=== PATIENT | female | born 1950 | race Caucasian/White ===

== ENCOUNTER 2022-06-14 18:02 | Inpatient (IN) | payer MEDICARE, OTHER ==
[~2022-06-14] VITALS: Ht 157.5 cm; Wt 66.2 kg
[2022-06-14] MEDS ORDERED: IV NORMAL SALINE 500 ML BAG IV ONE (18:30)
[2022-06-14 18:53] LABS: MEAN CORPUSCULAR HEMOGLOBIN 31.1 uug (24.7-32.8); MEAN CORPUSCULAR VOLUME 93.4 fL (75.5-95.3); PLATELET COUNT (AUTO) 517 K/uL (179-408)
[2022-06-14 19:05] LABS: ETHANOL < 3 MG/DL (0-0)
[2022-06-14 19:06] LABS: ALANINE AMINOTRANSFERASE 31 U/L (14-59); ALKALINE PHOSPHATASE 137 U/L (50-136); ASPARTATE AMINOTRANSFERASE 19 U/L (15-37); BILIRUBIN,DIRECT 0.2 mg/dL (0.0-0.2); BILIRUBIN,TOTAL 0.6 mg/dL (0.2-1.0); CARBON DIOXIDE 23 mmol/L (21-32); CHLORIDE 102 mmol/L (98-107); CREATININE 1.1 mg/dL (0.6-1.3); GLUCOSE 107 mg/dL (74-106); TOTAL PROTEIN, SERUM 6.8 g/dL (6.4-8.2); UREA NITROGEN, BLOOD 10 mg/dL (7-18)
[2022-06-14 19:08] LABS: POTASSIUM 2.8 mmol/L (3.5-5.1)
[2022-06-14 19:12] LABS: ACETAMINOPHEN < 2.0 ug/mL (10-30)
[2022-06-14 19:14] LABS: THYROID STIMULATING HORMONE 2.601 mIU/mL (0.358-3.740)
[2022-06-14] MEDS ORDERED: ROSU20TA2 PO (19:20)
[2022-06-14] MEDS ORDERED: METH-806 PO (19:20)
[2022-06-14] MEDS ORDERED: TOPI25TA49 PO (19:20)
[2022-06-14] MEDS ORDERED: ONDA4TAB5 PO ×2 (19:20)
[2022-06-14] MEDS ORDERED: TRAM50TA2 PO (19:20)
[2022-06-14] MEDS ORDERED: ASPI81TA31 PO (19:20)
[2022-06-14] MEDS ORDERED: HYDR-4075 PO (19:20)
[2022-06-14] MEDS ORDERED: LAMO200T10 PO (19:20)
[2022-06-14] MEDS ORDERED: SERT50TA PO (19:20)
[2022-06-14] MEDS ORDERED: CLON0.5T4 PO (19:20)
[2022-06-14] MEDS ORDERED: MULT-213 PO (19:20)
[2022-06-14] MEDS ORDERED: LORA-259 PO (19:20)
[2022-06-14] MEDS ORDERED: LEVE500T9 PO (19:20)
[2022-06-14] MEDS ORDERED: LIDO30AD10 TP (19:20)
--- NOTE | 2022-06-14 19:34 | NUR ---
Called [facility] ambulance to transport patient to [place] for CT scan. ETA is 60mins.
[2022-06-14] MEDS ORDERED: POTASSIUM CHLORIDE 20 MEQ TAB.PRT.SR PO ONE (20:00)
[2022-06-14] MEDS ORDERED: POTASSIUM CHLORIDE 20 MEQ TAB.PRT.SR ONE (20:28)
--- NOTE | 2022-06-14 20:42 | NUR ---
PATIENT SENT TO [facility] FOR CT SCAN BY [facility]
--- NOTE | 2022-06-14 21:24 | NUR ---
PATIENT BACK FROM CT SCAN WITH NO DISTRESS NOTED.
--- NOTE | 2022-06-14 23:39 | NUR ---
Medically cleared by Dr Navarro.
--- NOTE | 2022-06-14 23:42 | NUR ---
Called Eron Sosa to eval patient.
[2022-06-14] MEDS ORDERED: OLANZAPINE 10 MG VIAL IM ONE (23:50)
[2022-06-15] MEDS ORDERED: OLANZAPINE 10 MG VIAL IM ONE
--- NOTE | 2022-06-15 00:21 | NUR ---
Art Capilla into eval patient.
--- NOTE | 2022-06-15 00:56 | NUR ---
IV removed. Catheter intact and site benign. Pressure and 4x4 gauze applied to site. No bleeding noted.
--- NOTE | 2022-06-15 01:00 | NUR ---
Art Capilla placed patient on 5150 hold for GD.
[2022-06-15] MEDS ORDERED: MAG HYDROX/AL HYDROX/SIMETH 30 ML LIQUID UDC PO PRN (02:30)
[2022-06-15] MEDS ORDERED: MAGNESIUM HYDROXIDE 30 ML LIQUID UDC PO PRN (02:30)
--- NOTE | 2022-06-15 02:54 | NUR ---
Transfered to MHU via wheelchair with no distress noted.
[2022-06-15 03:07] VITALS: BP 140/96
--- NOTE | 2022-06-15 03:40 | NUR ---
GPS: Admitted to unit earlier a 71 yr.old female under the care of / from [facility]. Pt.is on a 72 hold for GD. Pt.was very agitated,yelling and running around the facility and was unable to be re-directed. Also unable to provide her food,half-way and clothing,per hold. Pt.is confused,disoriented and disorganized. Unable to answer questions when asked. Calm,cooperative during admission process. Insight and judgement impaired. Skin assessment/personal belongings completed. Unit rules and expectations explained. Pt's rights handbook and advisement given. Assisted to bed with bed alarm on for safety due to hx of falls. Seizure /fall precautions observed. Will continue to monitor behavior.
--- NOTE | 2022-06-15 06:29 | NUR ---
GPS: Remains asleep at this time. Resp.even and unlabored. Fall precautions observed. Will continue to monitor behavior.
[2022-06-15 07:39] VITALS: BP 137/63
[2022-06-15] MEDS: ACETAMINOPHEN 325 MG TABLET PO PRN (11:23)
[2022-06-15] MEDS ORDERED: ONDANSETRON HCL 4 MG TABLET PO PRN (11:45)
[2022-06-15] MEDS: SERTRALINE HCL 50 MG TABLET PO SCH (11:59)
[2022-06-15] MEDS: DIVALPROEX SPRINKLE 125 MG CAP.SPRINK PO SCH ×2 (11:59→20:18)
[2022-06-15] MEDS ORDERED: HYDR-894 PO (12:30)
[2022-06-15] MEDS ORDERED: hydrALAZINE HCL 25 MG TABLET PO PRN (12:30)
[2022-06-15] MEDS: TOPIRAMATE 25 MG TABLET PO SCH ×2 (14:00→20:23)
[2022-06-15] MEDS: LAMOTRIGINE 200 MG TABLET PO SCH ×2 (14:01→20:20)
[2022-06-15] MEDS: levETIRAcetam 250 MG TABLET PO SCH ×2 (14:02→20:19)
[2022-06-15] MEDS: METHOCARBAMOL 500 MG TABLET PO SCH ×3 (14:03→20:20)
[2022-06-15] MEDS: ASPIRIN 81 MG TAB.CHEW PO SCH (14:24)
--- NOTE | 2022-06-15 15:55 | NUR ---
SAM Initial Discharge Note: Patient's current address per face sheet states [address], [place] [address]. It is unclear if patient will continue care at this address. SW will continue to work with patient and MD to ensure a safe and proper discharge plan.
[2022-06-15 16:00] VITALS: BP 141/91
--- NOTE | 2022-06-15 17:46 | NUR ---
patient is slept most shift ,compliant with all medication , refused lunch and dinner, isolative in her room .refused to speak to psychiatrist and sales negotiator when then attempted to approach her. patient remains withdrawn and depression ,will continue close monitoring.
[2022-06-15 20:18] VITALS: BP 120/66
[2022-06-15] MEDS: OLANZAPINE 2.5 MG TABLET PO SCH (20:19)
[2022-06-15] MEDS: ATORVASTATIN 40 MG TABLET PO SCH (20:19)
[2022-06-15] MEDS: CLONAZEPAM 0.5 MG TABLET PO PRN (20:19)
--- NOTE | 2022-06-16 05:46 | NUR ---
Received patient in room, pulling sheets off her bed and very confused. When asked were [place] was [place] " [place]". Patient was anxious and fidgety . This jingle writer reassured and reoriented the patient multiple times. No aggressive behavior noted. Snack and fluids provided and encouraged. Safety Stratiges are in place. Sleep hours were 8.45. The patient is refusing a shower at this time. Continuing to monitor.
--- NOTE | 2022-06-16 07:30 | NUR ---
patient up to patti-chair in hallway, noted patient attempted to get out from patti-chair without asking for help and rolled over from patti-chair with nu witness fall to floor, assisted patient back to bed,no injury noted denies any pain or discomfort ,vital sign stable .Md notified with hip xray done no Fx noted. patient's personal secretary Dina notified.
[2022-06-16 08:01] VITALS: BP 128/60
[2022-06-16] MEDS: MULTIVIT, IRON, MIN NO. 8, FA TABLET PO SCH (08:34)
[2022-06-16] MEDS: SERTRALINE HCL 50 MG TABLET PO SCH (08:34)
[2022-06-16] MEDS: ASPIRIN 81 MG TAB.CHEW PO SCH (08:34)
[2022-06-16] MEDS: TOPIRAMATE 25 MG TABLET PO SCH ×2 (08:34→17:03)
[2022-06-16] MEDS: DIVALPROEX SPRINKLE 125 MG CAP.SPRINK PO SCH ×2 (08:34→20:43)
[2022-06-16] MEDS: LIDOCAINE 5% PATCH TD SCH (08:34)
[2022-06-16] MEDS: METHOCARBAMOL 500 MG TABLET PO SCH ×4 (08:37→20:43)
[2022-06-16] MEDS: levETIRAcetam 250 MG TABLET PO SCH ×2 (08:37→17:03)
[2022-06-16] MEDS: LAMOTRIGINE 200 MG TABLET PO SCH ×2 (08:38→17:02)
[2022-06-16 16:06] VITALS: BP 127/64
[2022-06-16 20:00] VITALS: BP 135/74
[2022-06-16] MEDS: ATORVASTATIN 40 MG TABLET PO SCH (20:43)
[2022-06-16] MEDS: OLANZAPINE 2.5 MG TABLET PO SCH (20:43)
[2022-06-16] MEDS: CLONAZEPAM 0.5 MG TABLET PO PRN (20:44)
--- NOTE | 2022-06-17 02:58 | NUR ---
Received patient at the start of the shift, roaming around the unit. Going into different peoples rooms, no situational awareness and completely confused. This patient is unable to follow simple directions or to let her needs known. This radio news writer guided the patient to the day room and assisted the patient with a snack. After that, the patient was given a shower. Frequent reorientation and redirection provided by the staff.. Safety Stratiges are in place and ongoing. No aggressive or combative behavior seen , monitoring the patient for behavior escalation.
[2022-06-17] MEDS: TRAMADOL HCL 50 MG TABLET PO PRN (03:35)
[2022-06-17 07:47] VITALS: BP 142/81
[2022-06-17] MEDS: TOPIRAMATE 25 MG TABLET PO SCH ×2 (09:03→16:42)
[2022-06-17] MEDS: MULTIVIT, IRON, MIN NO. 8, FA TABLET PO SCH (09:03)
[2022-06-17] MEDS: METHOCARBAMOL 500 MG TABLET PO SCH ×4 (09:03→21:12)
[2022-06-17] MEDS: ASPIRIN 81 MG TAB.CHEW PO SCH (09:03)
[2022-06-17] MEDS: levETIRAcetam 250 MG TABLET PO SCH ×2 (09:03→16:42)
[2022-06-17] MEDS: LAMOTRIGINE 200 MG TABLET PO SCH ×2 (09:03→16:42)
[2022-06-17] MEDS: SERTRALINE HCL 50 MG TABLET PO SCH (09:03)
[2022-06-17] MEDS: DIVALPROEX SPRINKLE 125 MG CAP.SPRINK PO SCH ×2 (09:03→21:10)
[2022-06-17] MEDS: LIDOCAINE 5% PATCH TD SCH (09:07)
--- NOTE | 2022-06-17 14:48 | NUR ---
GPS: Nursing Notes: 5250 Hearing Request: Staff gave copy of 5250 to patient. Explained 5250 and informed patient that a certification review hearing will held within four days. Patient was inform that patient's right advocate will talk to her to provide assistance in preparing for the hearing or to answer questions or to provide other assistance. The court has been notified of this certification on this day via [facility] portal.
[2022-06-17 16:11] VITALS: BP 132/67
[2022-06-17 19:45] VITALS: BP 126/57
[2022-06-17] MEDS: CLONAZEPAM 0.5 MG TABLET PO PRN (21:10)
[2022-06-17] MEDS: OLANZAPINE 2.5 MG TABLET PO SCH (21:11)
[2022-06-17] MEDS: ATORVASTATIN 40 MG TABLET PO SCH (21:11)
--- NOTE | 2022-06-18 05:33 | NUR ---
Patient slept well, sleep hours are 8.00 . At the start of the shift this patient was wondering around, confused and needing redirection. This patient has no short term memory and requires monitoring all the time to ensure safety. When a food item is placed in front of the patient , this selling underwriter literally has to tell the patient how use a utensil and when to swallow. Reorientation, reassurance and safety stratiges provided continuously. No aggressive or combative behavior noted.
[2022-06-18 07:46] LABS: HEMATOCRIT 39.7 % (31.2-41.9); MEAN CORPUSCULAR VOLUME 95.5 fL (75.5-95.3); PLATELET COUNT (AUTO) 472 K/uL (179-408)
[2022-06-18 08:00] VITALS: BP 131/57
[2022-06-18] MEDS: LAMOTRIGINE 200 MG TABLET PO SCH ×2 (09:14→16:25)
[2022-06-18] MEDS: TOPIRAMATE 25 MG TABLET PO SCH ×2 (09:14→17:47)
[2022-06-18] MEDS: levETIRAcetam 250 MG TABLET PO SCH ×2 (09:14→16:25)
[2022-06-18] MEDS: MULTIVIT, IRON, MIN NO. 8, FA TABLET PO SCH (09:14)
[2022-06-18] MEDS: ASPIRIN 81 MG TAB.CHEW PO SCH (09:14)
[2022-06-18] MEDS: METHOCARBAMOL 500 MG TABLET PO SCH ×4 (09:14→20:53)
[2022-06-18] MEDS: DIVALPROEX SPRINKLE 125 MG CAP.SPRINK PO SCH ×2 (09:14→20:05)
[2022-06-18] MEDS: LIDOCAINE 5% PATCH TD SCH (09:15)
[2022-06-18 09:54] LABS: BILIRUBIN,TOTAL 0.7 mg/dL (0.2-1.0); POTASSIUM 3.2 mmol/L (3.5-5.1); TOTAL PROTEIN, SERUM 6.7 g/dL (6.4-8.2)
[2022-06-18] MEDS: SERTRALINE HCL 50 MG TABLET PO SCH (10:33)
[2022-06-18] MEDS ORDERED: POTASSIUM CHLORIDE 10 MEQ TAB.PRT.SR PO ONE (12:00)
--- NOTE | 2022-06-18 15:18 | NUR ---
patient is slept most shift compliant with all medication , isolative in her room .assisted with all meals. patient remains withdrawn and depression ,will continue close monitoring.
[2022-06-18 16:07] VITALS: BP 106/56
[2022-06-18] MEDS: ENSURE WITH FIBER 237 ML LIQUID (CHOCOLATE) PO SCH (16:25)
[2022-06-18 19:50] VITALS: BP 124/83
[2022-06-18] MEDS: OLANZAPINE 2.5 MG TABLET PO SCH (20:05)
[2022-06-18] MEDS: ATORVASTATIN 40 MG TABLET PO SCH (20:05)
[2022-06-18] MEDS: CLONAZEPAM 0.5 MG TABLET PO PRN (21:12)
--- NOTE | 2022-06-18 21:15 | NUR ---
GPS: Pt.is alert to self only. Confused,disoriented and disorganized. Poor insight to present situation. Wanders from room to room and stands near double doors and is a high risk for AWOL. Constant re-direction provided by staff. Due meds.given earlier. Klonopin 0.5mg given PO for anxiety. Will monitor effectiveness. Reality re-orientation provided. Fall precautions observed.
[2022-06-18] MEDS: ACETAMINOPHEN 325 MG TABLET PO PRN (23:23)
[2022-06-18] MEDS: TEMAZEPAM 7.5 MG CAPSULE PO PRN (23:23)
--- NOTE | 2022-06-18 23:25 | NUR ---
GPS: Pt.remains awake. Unable to fall asleep. Denies pain when asked. Restoril 7.5mg given PO for insomnia. Quiet environment provided to facilitate sleep. Bed alarm on for safety. Re-directed frequently due to increased confusion.
--- NOTE | 2022-06-19 01:00 | NUR ---
GPS: Pt. remains awake at this time and currently restless. Denies pain/discomfort when asked. Denies needing to go to the toilet when asked. Sleeping pill given earlier was ineffective. Confused,disoriented. Up on patti-chair near nurses station for close observation/safety due to frequent episodes of trying to get out of bed (unsteady gait now). Re-directed constantly. Will continue to monitor.
--- NOTE | 2022-06-19 06:39 | NUR ---
GPS: Pt.did not sleep at all the whole night. All prn meds.given were unsuccessful. Pt.was restless most of the night and kept trying to get up from the bed first then patti-chair. Constant re-direction provided. Showered just now and was assisted by staff. Needs attended. Will continue to monitor. Reality re-orientation provided prn.
[2022-06-19 07:48] VITALS: BP 122/86
[2022-06-19] MEDS: ASPIRIN 81 MG TAB.CHEW PO SCH (08:43)
[2022-06-19] MEDS: DIVALPROEX SPRINKLE 125 MG CAP.SPRINK PO SCH ×2 (08:43→20:34)
[2022-06-19] MEDS: ENSURE WITH FIBER 237 ML LIQUID (CHOCOLATE) PO SCH ×2 (08:43→17:00)
[2022-06-19] MEDS: METHOCARBAMOL 500 MG TABLET PO SCH ×4 (08:44→20:35)
[2022-06-19] MEDS: LAMOTRIGINE 200 MG TABLET PO SCH ×2 (08:44→20:36)
[2022-06-19] MEDS: levETIRAcetam 250 MG TABLET PO SCH ×2 (08:44→20:34)
[2022-06-19] MEDS: MULTIVIT, IRON, MIN NO. 8, FA TABLET PO SCH (08:44)
[2022-06-19] MEDS: SERTRALINE HCL 50 MG TABLET PO SCH (08:45)
[2022-06-19] MEDS: LIDOCAINE 5% PATCH TD SCH (08:45)
[2022-06-19] MEDS: TOPIRAMATE 25 MG TABLET PO SCH ×2 (08:45→20:34)
[2022-06-19] MEDS ORDERED: OLANZAPINE 2.5 MG TABLET PO SCH (09:30)
[2022-06-19 16:44] VITALS: BP 142/59
--- NOTE | 2022-06-19 18:44 | NUR ---
Patient is alert/oriented to self. Noted with confusion, nonsensical. Compliant with medication. Seen by MD increased Olanzapine, orders carried out. Patient slept during the shift from noon time. Patient is arousable to touch, no distress noted, no significant changes. Tolerated whole pill, no aspiration noted. She is now on a regular diet. Will endorse to the next shift for continuity of care.
--- NOTE | 2022-06-19 18:50 | NUR ---
Safety measures maintained.
[2022-06-19 20:15] VITALS: BP 138/68
[2022-06-19] MEDS: OLANZAPINE 2.5 MG TABLET PO SCH (20:34)
[2022-06-19] MEDS: ATORVASTATIN 40 MG TABLET PO SCH (20:35)
--- NOTE | 2022-06-20 06:38 | NUR ---
GPS: Pt.slept 9 hrs.last night. Remains confused,disoriented and disorganized. Reality re-orientation provided. Re-directed prn. Needs attended. Safe environment provided. Will continue to monitor.
[2022-06-20 07:30] VITALS: BP 127/59
[2022-06-20] MEDS: LAMOTRIGINE 200 MG TABLET PO SCH ×2 (09:32→17:17)
[2022-06-20] MEDS: ASPIRIN 81 MG TAB.CHEW PO SCH (09:33)
[2022-06-20] MEDS: TOPIRAMATE 25 MG TABLET PO SCH ×2 (09:33→20:29)
[2022-06-20] MEDS: DIVALPROEX SPRINKLE 125 MG CAP.SPRINK PO SCH ×2 (09:33→20:29)
[2022-06-20] MEDS: SERTRALINE HCL 50 MG TABLET PO SCH (09:33)
[2022-06-20] MEDS: OLANZAPINE 2.5 MG TABLET PO SCH ×2 (09:33→20:29)
[2022-06-20] MEDS: MULTIVIT, IRON, MIN NO. 8, FA TABLET PO SCH (09:33)
[2022-06-20] MEDS: ENSURE WITH FIBER 237 ML LIQUID (CHOCOLATE) PO SCH ×2 (09:34→17:21)
[2022-06-20] MEDS: METHOCARBAMOL 500 MG TABLET PO SCH ×4 (09:34→20:29)
[2022-06-20] MEDS: levETIRAcetam 250 MG TABLET PO SCH ×2 (09:34→20:29)
[2022-06-20] MEDS: LIDOCAINE 5% PATCH TD SCH (09:35)
[2022-06-20] MEDS: CLONAZEPAM 0.5 MG TABLET PO PRN ×2 (11:07→17:21)
[2022-06-20 13:04] LABS: *BILIRUBIN,URIN NEGATIVE (NEGATIVE); *BLOOD, URINE NEGATIVE (NEGATIVE); *CLARITY,URINE CLEAR (CLEAR); *COLOR,URINE YELLOW (YELLOW); *KETONES,URINE TRACE (NEGATIVE); *UROBILINOGEN,URINE 0.2 E.U./dl (NORMAL); LEUKOCYTE ESTERASE ,URINE 3+ (NEGATIVE); NITRITE, URINE NEGATIVE (NEGATIVE); UGLUCOSE NEGATIVE (NEGATIVE)
[2022-06-20] MEDS: ACETAMINOPHEN 325 MG TABLET PO PRN ×2 (13:09→21:42)
[2022-06-20 13:25] LABS: RBC,URINE 0-3 /HPF (0-3); WBC,URINE 20-50 /HPF (0-3)
[2022-06-20 13:26] LABS: BACTERIA,URINE MANY /HPF (NONE SEEN); SQUAMOUS EPITHELIAL CELL,UR MODERATE /HPF (NONE SEEN)
[2022-06-20 16:00] VITALS: BP 110/68
--- NOTE | 2022-06-20 18:33 | NUR ---
Patient remains alert, oriented to self, confused, not in any form of distress, on room air. Reality orientation provided. Patient noted with episodes of anxiety and given PRN clonazepam as ordered. She is compliant with medications. Assisted with her feeding with no signs of aspiration. Assisted her to ambulate to the bathroom to void. Urine specimen sent to laboratory. Safety measures maintained.
[2022-06-20 19:58] VITALS: BP 116/62
[2022-06-20] MEDS: ATORVASTATIN 40 MG TABLET PO SCH (20:29)
[2022-06-20] MEDS: NITROFURANTOIN/NITROFURAN MAC 100 MG CAPSULE PO SCH (20:35)
[2022-06-20] MEDS: TEMAZEPAM 7.5 MG CAPSULE PO PRN (21:42)
[2022-06-21 07:30] VITALS: BP 120/60
[2022-06-21] MEDS: ASPIRIN 81 MG TAB.CHEW PO SCH (08:35)
[2022-06-21] MEDS: DIVALPROEX SPRINKLE 125 MG CAP.SPRINK PO SCH ×2 (08:35→20:40)
[2022-06-21] MEDS: NITROFURANTOIN/NITROFURAN MAC 100 MG CAPSULE PO SCH ×2 (08:35→17:15)
[2022-06-21] MEDS: levETIRAcetam 250 MG TABLET PO SCH ×2 (08:35→20:40)
[2022-06-21] MEDS: SERTRALINE HCL 50 MG TABLET PO SCH (08:36)
[2022-06-21] MEDS: MULTIVIT, IRON, MIN NO. 8, FA TABLET PO SCH (08:36)
[2022-06-21] MEDS: TOPIRAMATE 25 MG TABLET PO SCH ×2 (08:36→20:40)
[2022-06-21] MEDS: LAMOTRIGINE 200 MG TABLET PO SCH ×2 (08:36→17:14)
[2022-06-21] MEDS: OLANZAPINE 2.5 MG TABLET PO SCH ×2 (08:36→20:40)
[2022-06-21] MEDS: ENSURE WITH FIBER 237 ML LIQUID (CHOCOLATE) PO SCH ×2 (08:41→17:15)
[2022-06-21] MEDS: LIDOCAINE 5% PATCH TD SCH (08:42)
[2022-06-21] MEDS: CLONAZEPAM 0.5 MG TABLET PO PRN ×2 (08:58→18:39)
--- NOTE | 2022-06-21 11:16 | NUR ---
Gps/Web Development Director- OOB to her patti-chair, stayed up during her breakfast, needed assist with her meals, anxious, crying spells noted. Routine am meds. administered crushed with apple sauce, PRN clonopin 0.5 mg po was administered . Monitored closely for safety, ambulated to the bathroom to void.
[2022-06-21] MEDS: METHOCARBAMOL 500 MG TABLET PO SCH ×4 (11:47→20:39)
--- NOTE | 2022-06-21 12:24 | NUR ---
Hearing completed. Hold is upheld with criteria of Grave disability
--- NOTE | 2022-06-21 15:23 | NUR ---
SAM Family Contact: SAM spoke with pt's son, Nicola who lives out of state ([phone]) who stated that he is agreeable with the psychiatrist's recommendations for pt's continuation of care. Nicola stated pt has a small animal caretaker at home, however he is agreeable to a SNF if needed. SAM stated she will continue to update him with the discharge plan.
[2022-06-21 16:00] VITALS: BP 118/72
[2022-06-21 20:13] VITALS: BP 114/59
[2022-06-21] MEDS: ATORVASTATIN 40 MG TABLET PO SCH (20:40)
--- NOTE | 2022-06-22 05:59 | NUR ---
GPS: Patient remain confused and forgetful. compliant with meds and care. assisted with adl's. slept 6.45 hrs through the night. no agitation noted.
[2022-06-22 07:30] VITALS: BP 101/78
[2022-06-22] MEDS: ENSURE WITH FIBER 237 ML LIQUID (CHOCOLATE) PO SCH ×2 (08:00→16:46)
[2022-06-22] MEDS: LAMOTRIGINE 200 MG TABLET PO SCH ×2 (09:07→16:38)
[2022-06-22] MEDS: TOPIRAMATE 25 MG TABLET PO SCH ×2 (09:07→20:59)
[2022-06-22] MEDS: OLANZAPINE 2.5 MG TABLET PO SCH ×2 (09:07→21:00)
[2022-06-22] MEDS: METHOCARBAMOL 500 MG TABLET PO SCH ×4 (09:07→21:09)
[2022-06-22] MEDS: SERTRALINE HCL 50 MG TABLET PO SCH (09:08)
[2022-06-22] MEDS: NITROFURANTOIN/NITROFURAN MAC 100 MG CAPSULE PO SCH ×2 (09:08→16:38)
[2022-06-22] MEDS: ASPIRIN 81 MG TAB.CHEW PO SCH (09:08)
[2022-06-22] MEDS: DIVALPROEX SPRINKLE 125 MG CAP.SPRINK PO SCH ×2 (09:10→20:59)
[2022-06-22] MEDS: MULTIVIT, IRON, MIN NO. 8, FA TABLET PO SCH (09:11)
[2022-06-22] MEDS: LIDOCAINE 5% PATCH TD SCH (09:12)
[2022-06-22] MEDS: levETIRAcetam 250 MG TABLET PO SCH ×2 (09:12→20:59)
[2022-06-22] MEDS: TRAMADOL HCL 50 MG TABLET PO PRN (11:22)
--- NOTE | 2022-06-22 11:27 | NUR ---
Gps/Cardiology Coordinator- Encouraged to stay in bed to rest her back pain, repositioned on her left side, offered, prn tramadol 50 mg administered po with apple sauce. .Safety reviewed, emphasized, bed alarm on
[2022-06-22] MEDS: CLONAZEPAM 0.5 MG TABLET PO PRN ×2 (13:37→17:22)
[2022-06-22 16:00] VITALS: BP_SYST 130; BP_SYST 132; BP_DIAS 78; BP_DIAS 80
--- NOTE | 2022-06-22 17:30 | NUR ---
Gps/Child Welfare Director-Assisted back to bed after shower. Restless, moaning making sounds, encouraged patient to stay up in her patti-chair till dinner, patient kept climbing up her chair, ambulated back to her room for safety, bed alarm on. Safety reviewed , emphasized
[2022-06-22 20:00] VITALS: BP 116/77
[2022-06-22] MEDS: ATORVASTATIN 40 MG TABLET PO SCH (20:59)
[2022-06-22 22:47] VITALS: BP 127/59
[2022-06-22] MEDS: TEMAZEPAM 7.5 MG CAPSULE PO PRN (22:52)
--- NOTE | 2022-06-23 04:50 | NUR ---
GPS: Pt. is awake at this time and currently restless. Denies pain/discomfort. assisted to go to the toilet when asked. Sleeping pill given earlier was ineffective. Remain Confused and disoriented. Up on patti-chair near nurses station for close observation/safety due to frequent episodes of trying to get out of bed (unsteady gait now). Re-directed constantly. Will continue plan of care.
--- NOTE | 2022-06-23 06:17 | NUR ---
patient slept 3.15 hrs through the night.
[2022-06-23 07:30] VITALS: BP 130/75
[2022-06-23] MEDS: ENSURE WITH FIBER 237 ML LIQUID (CHOCOLATE) PO SCH ×2 (08:00→17:41)
[2022-06-23] MEDS: ASPIRIN 81 MG TAB.CHEW PO SCH (09:01)
[2022-06-23] MEDS: levETIRAcetam 250 MG TABLET PO SCH ×2 (09:02→20:31)
[2022-06-23] MEDS: NITROFURANTOIN/NITROFURAN MAC 100 MG CAPSULE PO SCH ×2 (09:02→17:40)
[2022-06-23] MEDS: MULTIVIT, IRON, MIN NO. 8, FA TABLET PO SCH (09:04)
[2022-06-23] MEDS: LAMOTRIGINE 200 MG TABLET PO SCH ×2 (09:04→17:40)
[2022-06-23] MEDS: OLANZAPINE 2.5 MG TABLET PO SCH ×2 (09:04→20:30)
[2022-06-23] MEDS: SERTRALINE HCL 50 MG TABLET PO SCH (09:04)
[2022-06-23] MEDS: TOPIRAMATE 25 MG TABLET PO SCH ×2 (09:04→20:31)
[2022-06-23] MEDS: METHOCARBAMOL 500 MG TABLET PO SCH ×4 (09:04→20:31)
[2022-06-23] MEDS: DIVALPROEX SPRINKLE 125 MG CAP.SPRINK PO SCH ×2 (09:05→20:31)
[2022-06-23] MEDS: LIDOCAINE 5% PATCH TD SCH (09:06)
[2022-06-23] MEDS: CLONAZEPAM 0.5 MG TABLET PO PRN ×2 (12:03→19:03)
[2022-06-23] MEDS: ACETAMINOPHEN 325 MG TABLET PO PRN (12:03)
--- NOTE | 2022-06-23 12:51 | NUR ---
Gps/Eggs Inspector- Restless, fidgety, kept her on her patti-chair for safety, gait tends to be unsteady, wabbles at time, safety continue to emphasized, had been in and out of her bed, with bed alarm on. Toileted at a reg. intervals. Stayed up during her group activity, closely supervised for safety, Speech confused and incoherent
[2022-06-23] MEDS: TRAMADOL HCL 50 MG TABLET PO PRN (15:08)
[2022-06-23 16:00] VITALS: BP 119/65
[2022-06-23] MEDS: ATORVASTATIN 40 MG TABLET PO SCH (20:31)
[2022-06-23 21:00] VITALS: BP 135/64
[2022-06-24] MEDS: TEMAZEPAM 7.5 MG CAPSULE PO PRN ×2 (01:33→22:58)
--- NOTE | 2022-06-24 05:45 | NUR ---
GPS: Patient remain confused and forgetful. compliant with meds and care. assisted with adl's. no agitation noted. resting in bed comfortably. continue plan of care.
--- NOTE | 2022-06-24 06:28 | NUR ---
slept 6.45 hrs through the night.
[2022-06-24 07:30] VITALS: BP 111/62
[2022-06-24] MEDS: TRAMADOL HCL 50 MG TABLET PO PRN ×2 (08:17→20:09)
[2022-06-24] MEDS: ASPIRIN 81 MG TAB.CHEW PO SCH (08:20)
[2022-06-24] MEDS: LAMOTRIGINE 200 MG TABLET PO SCH ×2 (08:20→17:27)
[2022-06-24] MEDS: DIVALPROEX SPRINKLE 125 MG CAP.SPRINK PO SCH ×2 (08:21→20:10)
[2022-06-24] MEDS: MULTIVIT, IRON, MIN NO. 8, FA TABLET PO SCH (08:21)
[2022-06-24] MEDS: TOPIRAMATE 25 MG TABLET PO SCH ×2 (08:21→20:10)
[2022-06-24] MEDS: NITROFURANTOIN/NITROFURAN MAC 100 MG CAPSULE PO SCH ×2 (08:21→17:28)
[2022-06-24] MEDS: LIDOCAINE 5% PATCH TD SCH (08:22)
[2022-06-24] MEDS: METHOCARBAMOL 500 MG TABLET PO SCH ×4 (08:22→20:35)
[2022-06-24] MEDS: SERTRALINE HCL 50 MG TABLET PO SCH (08:25)
[2022-06-24] MEDS: ENSURE WITH FIBER 237 ML LIQUID (CHOCOLATE) PO SCH ×2 (08:36→17:28)
--- NOTE | 2022-06-24 09:30 | NUR ---
Gps/Station Inspector- Patient with extreme agitation while in the activity room, , yelling at the staff, screaming , not redirectable, offered prn clonipin 0.5 mg po, refused. Dr Cornelio Lehman BUTTERMILK DRIER OPERATOR was called by Charge Nurse Lesa, informed of patient behavior, order received.
[2022-06-24] MEDS ORDERED: LORAZEPAM 2 MG/1 ML VIAL IM ONE (09:45)
[2022-06-24] MEDS: OLANZAPINE 2.5 MG TABLET PO SCH ×2 (10:31→20:10)
[2022-06-24] MEDS: levETIRAcetam 250 MG TABLET PO SCH ×2 (10:32→20:10)
--- NOTE | 2022-06-24 13:51 | NUR ---
Gps/Stock Turner- Patient was able to nap for 2 hours in bed after her IM ativan . Bed alarm went off, patient came out of her room loud , starts yelling again , calling staff name, making nasty gestures. Noted gait wably, unsteady, staff having difficulty redirecting patient, assisted to her patti-chair for safety. Encouraged to eat, assisted with her lunch, patient constantly talking loud no sense., incoherent speech
[2022-06-24 16:22] VITALS: BP 99/57
[2022-06-24] MEDS: CLONAZEPAM 0.5 MG TABLET PO PRN ×2 (17:35→22:00)
--- NOTE | 2022-06-24 18:00 | NUR ---
Gps/Floor Space Allocator- Monitored closely, wanders to other rooms, loud , labile mood, cursing , foul language., will not stay still , tends to get off balance, safety reviewed , emphasized, tried to keep patient up ion her patti-chair will not stay still, uncooperative with the staff. Assisted with her meals
[2022-06-24 19:46] VITALS: BP 102/75
[2022-06-24] MEDS: ATORVASTATIN 40 MG TABLET PO SCH (20:10)
--- NOTE | 2022-06-24 20:45 | NUR ---
RECEIVED PATIENT IN THE HALLWAY SITTING IN A UZAIR CHAIR NEAR THE NURSING STATION FOR SAFETY AND FALL PRECAUTION. PATIENT IS NOTED RESTLESS, SHE GETS EASILY IRRITABLE. SHE IS A POOR HISTORIAN. SHE HAS A DISORGANIZED SPEECH SHE IS TANGENTAL. KLONOPIN 0.5MG PO PRN WAS GIVEN THEN LATER ON SHE WAS GIVEN ULTRAM 50MG FOR PAIN. HER V/S ARE STABLE. SHE WAS GIVEN PO FLUIDS AND SNACKS. SHE IS [id number] FOR HER SAFETY. SAFETY AND FALL PRECAUTION ARE IN PLACE.
[2022-06-25] MEDS: CLONAZEPAM 0.5 MG TABLET PO PRN ×2 (04:14→17:08)
[2022-06-25] MEDS: TRAMADOL HCL 50 MG TABLET PO PRN (04:30)
[2022-06-25 07:54] VITALS: BP 117/66
[2022-06-25] MEDS: ENSURE WITH FIBER 237 ML LIQUID (CHOCOLATE) PO SCH ×2 (08:00→17:00)
[2022-06-25] MEDS ORDERED: OLANZAPINE 5 MG TABLET PO SCH (09:00)
[2022-06-25] MEDS: ASPIRIN 81 MG TAB.CHEW PO SCH (10:30)
[2022-06-25] MEDS: DIVALPROEX SPRINKLE 125 MG CAP.SPRINK PO SCH ×2 (10:33→20:41)
[2022-06-25] MEDS: levETIRAcetam 250 MG TABLET PO SCH ×2 (10:35→20:42)
[2022-06-25] MEDS: METHOCARBAMOL 500 MG TABLET PO SCH ×4 (10:36→20:42)
[2022-06-25] MEDS: NITROFURANTOIN/NITROFURAN MAC 100 MG CAPSULE PO SCH ×2 (10:36→17:08)
[2022-06-25] MEDS: MULTIVIT, IRON, MIN NO. 8, FA TABLET PO SCH (10:36)
[2022-06-25] MEDS: LAMOTRIGINE 200 MG TABLET PO SCH ×2 (10:36→17:08)
[2022-06-25] MEDS: TOPIRAMATE 25 MG TABLET PO SCH ×2 (10:37→20:41)
[2022-06-25] MEDS: SERTRALINE HCL 50 MG TABLET PO SCH (10:37)
[2022-06-25] MEDS ORDERED: OLANZAPINE 2.5 MG TABLET PO ONE (10:45)
[2022-06-25] MEDS: LIDOCAINE 5% PATCH TD SCH (11:11)
--- NOTE | 2022-06-25 15:54 | NUR ---
SAM Family Contact: SAM spoke with pt's son, Nicola ([phone]) to discuss pt's current status and acceptance to [facility] [phone] upon discharge. Nicola stated he will be in town in a couple of weeks, however he is agreeable to pt discharging to a longterm per psychiatrist's recommendation. SAM stated she will call and confirm a discharge date once available. Nicola is agreeable.
[2022-06-25 16:07] VITALS: BP 110/58
[2022-06-25 20:00] VITALS: BP 109/52
[2022-06-25] MEDS: ATORVASTATIN 40 MG TABLET PO SCH (20:42)
[2022-06-25] MEDS: OLANZAPINE 5 MG TABLET PO SCH (20:42)
--- NOTE | 2022-06-25 20:45 | NUR ---
Received patient in her room in bed sleeping but easily arrousable. She is in no distress. V/S stable. Patient is noted A/O x 1 to 2. she is less anxious less agitated. her speech is tangental. She is reassured for his safety, safety and fall precautions are in place. she was given PO fluids and snacks. will continue to monitor.
[2022-06-26] MEDS: TEMAZEPAM 7.5 MG CAPSULE PO PRN ×2 (02:02→23:06)
--- NOTE | 2022-06-26 05:55 | NUR ---
PATIENT SLEPT FOR APPROX 7.15 HRS THROUGH THE NIGHT. SHE WAS NOTED CONFUSED, SHE STATED, "TAKE ME TO SEE THE BABIES, PLEASE". SHE WAS NOTED TEARFUL. SHE REQUIRES REDIRECTION AND REALITY CHECK. NO AGGRESSIVE OR COMBATIVE BX WAS NOTED DURING THE SHIFT. WILL CONTINUE TO MONITOR FOR ANY CHANGES IN CONDITIONS.
[2022-06-26 08:03] VITALS: BP 96/67
[2022-06-26] MEDS: levETIRAcetam 250 MG TABLET PO SCH ×2 (09:27→21:03)
[2022-06-26] MEDS: MULTIVIT, IRON, MIN NO. 8, FA TABLET PO SCH (09:27)
[2022-06-26] MEDS: LAMOTRIGINE 200 MG TABLET PO SCH ×2 (09:27→17:16)
[2022-06-26] MEDS: DIVALPROEX SPRINKLE 125 MG CAP.SPRINK PO SCH ×2 (09:27→21:03)
[2022-06-26] MEDS: ENSURE WITH FIBER 237 ML LIQUID (CHOCOLATE) PO SCH ×2 (09:28→17:17)
[2022-06-26] MEDS: ASPIRIN 81 MG TAB.CHEW PO SCH (09:28)
[2022-06-26] MEDS: METHOCARBAMOL 500 MG TABLET PO SCH ×4 (09:28→21:03)
[2022-06-26] MEDS: OLANZAPINE 5 MG TABLET PO SCH ×2 (09:28→21:03)
[2022-06-26] MEDS: NITROFURANTOIN/NITROFURAN MAC 100 MG CAPSULE PO SCH (09:28)
[2022-06-26] MEDS: SERTRALINE HCL 50 MG TABLET PO SCH (09:28)
[2022-06-26] MEDS: TOPIRAMATE 25 MG TABLET PO SCH ×2 (09:28→21:03)
[2022-06-26] MEDS: LIDOCAINE 5% PATCH TD SCH (09:29)
--- NOTE | 2022-06-26 10:17 | NUR ---
GPS: SEEN PT ON UZAIR CHAIR SAFETY AND FALL PRECAUTION. PT ALERT AND VERBALLY RESPONSIVE BUT NON-COHERENT AT TIMES. STATING "HE IS MAHI", "I WOULD LIKE TO RIDE A BUS, WHERE IS IT?". PT RE-ORIENTED TO REALITY AND PLACE. PT LIKES WANDERING AROUND THE HALLWAY. POSTED NOTES OUTSIDE HER ROOM TO REMIND HER. PT GLAD THAT SHE GOT A LIDOCAINE PATCH PLACED ON LOWER BACK. DENIES PAIN OR DISCOMFORT.
[2022-06-26] MEDS: CLONAZEPAM 0.5 MG TABLET PO PRN (12:46)
[2022-06-26] MEDS: TRAMADOL HCL 50 MG TABLET PO PRN ×2 (13:08→19:07)
[2022-06-26 15:07] VITALS: BP 111/81
--- NOTE | 2022-06-26 18:03 | NUR ---
GPS: PT SEEN WANDERING AROUND THE HALLWAY. STAYS IN FRONT OF THE ENTRANCE DOOR AT TIMES. CALLING OUT OTHER NAMES. TALKING TO SELF. PT REDIRECTABLE MOST OF THE TIME BUT NEEDS CONSTANT REDIRECTION. COMPLIANT WITH MEDS AND CARE. STAYS ON CHAIR DURING MEALS. PT TALKS FROM ONE TOPIC TO ANOTHER, SOUNDS CONFUSED. KLONOPIN AND ULTRAM WAS GIVEN AFTER LUNCH PT COMPLAINT OF BEING ANXIOUS AND HAVE PAIN ON THE BACK. LIDOCAINE PATCH ALSO ADMINISTERED.
[2022-06-26 20:12] VITALS: BP 101/66
[2022-06-26] MEDS: ATORVASTATIN 40 MG TABLET PO SCH (21:03)
--- NOTE | 2022-06-26 21:30 | NUR ---
RECEIVED PATIENT IN HER ROOM SLEEPING BUT EASILY AROUSABLE. SHE IS NOTED A/O X 1. SHE IS NOTED TALKING TO HERSELF, WHISPERING, "YOBANY, COME OVER HERE". SHE IS FIXED ON BABIES. SHE STATES, "TAKE ME TO SEE THE BABIES, WHERE ARE THE BABIES. PATIENT IS SOMEWHAT REDIRECTABLE. SHE IS REASSURED FOR HER SAFETY. SAFETY AND FALL PRECAUTIONARE IN PLACE. HER V/S ARE STABLE. SHE IS IN NO DISTRESS. SHE WAS GIVEN PO FLUIDS AND SNACKS. SHE WAS ALSO GIVEN MOM PO PRN TO HELP HER WITH BMs. WILL CONTINUE TO MONITOR.
[2022-06-27 07:30] VITALS: BP 129/74
[2022-06-27] MEDS: SERTRALINE HCL 50 MG TABLET PO SCH (08:48)
[2022-06-27] MEDS: ENSURE WITH FIBER 237 ML LIQUID (CHOCOLATE) PO SCH ×2 (08:48→17:39)
[2022-06-27] MEDS: LIDOCAINE 5% PATCH TD SCH (08:48)
[2022-06-27] MEDS: ASPIRIN 81 MG TAB.CHEW PO SCH (08:48)
[2022-06-27] MEDS: DIVALPROEX SPRINKLE 125 MG CAP.SPRINK PO SCH ×2 (08:48→20:25)
[2022-06-27] MEDS: LAMOTRIGINE 200 MG TABLET PO SCH ×2 (08:48→17:38)
[2022-06-27] MEDS: OLANZAPINE 5 MG TABLET PO SCH ×2 (08:48→20:25)
[2022-06-27] MEDS: MULTIVIT, IRON, MIN NO. 8, FA TABLET PO SCH (08:48)
[2022-06-27] MEDS: levETIRAcetam 250 MG TABLET PO SCH ×2 (08:48→20:25)
[2022-06-27] MEDS: TOPIRAMATE 25 MG TABLET PO SCH ×2 (08:48→20:25)
[2022-06-27] MEDS: METHOCARBAMOL 500 MG TABLET PO SCH ×4 (08:48→20:25)
[2022-06-27 16:00] VITALS: BP 127/71
--- NOTE | 2022-06-27 16:51 | NUR ---
GPS: PT RECEIVED ON BED THIS MORNING. DOES NOT MAKE ANY MEANINGFUL CONVERSATION. CONFUSED AND SOMETIMES DISORIENTED TO PLACE. LIKES TO WANDER ALONG THE HALLWAY AND GET INTO NURSES STATION. FREQUENT RE-ORIENTATION MADE. COMPLIANT WITH CARE AND MEDS. NO AGITATION OR YELLING NOTED. SAT TO RANCHO CHAIR AT TIMES FOR SAFETY. ASSISTED TO BATHROOM. FIXATED TO "BABY" AND FRIENDLY TO OTHER PT.
[2022-06-27 20:00] VITALS: BP 125/64
[2022-06-27] MEDS: ATORVASTATIN 40 MG TABLET PO SCH (20:25)
[2022-06-28] MEDS: CLONAZEPAM 0.5 MG TABLET PO PRN ×2 (06:01→08:46)
--- NOTE | 2022-06-28 06:05 | NUR ---
PATIENT WOKE UP AND STARTED PACING THE HALLWAY, SHE STATED, "I NEED TO SEE THE CHILDREN. TAKE ME TO SEE THE CHILDREN". PATIENT WAS REASSURED AND REDIRECTED. KLONOPIN 0.5MG PO PRN WAS GIVEN FOR ANXIETY. WILL CONTINUE TO MONITOR.
[2022-06-28 07:56] VITALS: BP_SYST 117; BP_SYST 136; BP_DIAS 48; BP_DIAS 60
[2022-06-28] MEDS: ASPIRIN 81 MG TAB.CHEW PO SCH (08:31)
[2022-06-28] MEDS: TOPIRAMATE 25 MG TABLET PO SCH ×2 (08:31→21:04)
[2022-06-28] MEDS: DIVALPROEX SPRINKLE 125 MG CAP.SPRINK PO SCH ×2 (08:31→21:04)
[2022-06-28] MEDS: SERTRALINE HCL 50 MG TABLET PO SCH (08:31)
[2022-06-28] MEDS: levETIRAcetam 250 MG TABLET PO SCH ×2 (08:31→21:04)
[2022-06-28] MEDS: LAMOTRIGINE 200 MG TABLET PO SCH ×2 (08:31→17:58)
[2022-06-28] MEDS: MULTIVIT, IRON, MIN NO. 8, FA TABLET PO SCH (08:31)
[2022-06-28] MEDS: METHOCARBAMOL 500 MG TABLET PO SCH ×4 (08:43→21:05)
[2022-06-28] MEDS: OLANZAPINE 5 MG TABLET PO SCH ×2 (08:43→21:05)
[2022-06-28] MEDS: ENSURE WITH FIBER 237 ML LIQUID (CHOCOLATE) PO SCH ×2 (08:43→17:59)
[2022-06-28] MEDS: LIDOCAINE 5% PATCH TD SCH (08:44)
[2022-06-28 16:29] VITALS: BP 117/60
[2022-06-28 20:15] VITALS: BP 107/50
[2022-06-28] MEDS: ATORVASTATIN 40 MG TABLET PO SCH (21:04)
--- NOTE | 2022-06-29 04:46 | NUR ---
Patient is calm, cooperative but still very confused and has hallucinations. Assisted up to the bathroom multiple times during the night. Oral fluids encouraged and provided. The patient has been medication compliant but can have labile moods swings. So far, no behavior escalation noted . Safety Stratiges are in place. Possible discharge today.Monitoring closely as the patient tends to wander around the unit into other patients rooms.
[2022-06-29 07:30] VITALS: BP 129/84
[2022-06-29] MEDS: TOPIRAMATE 25 MG TABLET PO SCH (08:31)
[2022-06-29] MEDS: OLANZAPINE 5 MG TABLET PO SCH (08:32)
[2022-06-29] MEDS: SERTRALINE HCL 50 MG TABLET PO SCH (08:32)
[2022-06-29] MEDS: ASPIRIN 81 MG TAB.CHEW PO SCH (08:32)
[2022-06-29] MEDS: levETIRAcetam 250 MG TABLET PO SCH (08:32)
[2022-06-29] MEDS: LAMOTRIGINE 200 MG TABLET PO SCH (08:32)
[2022-06-29] MEDS: MULTIVIT, IRON, MIN NO. 8, FA TABLET PO SCH (08:32)
[2022-06-29] MEDS: ENSURE WITH FIBER 237 ML LIQUID (CHOCOLATE) PO SCH (08:33)
[2022-06-29] MEDS: DIVALPROEX SPRINKLE 125 MG CAP.SPRINK PO SCH (08:33)
[2022-06-29] MEDS: METHOCARBAMOL 500 MG TABLET PO SCH ×2 (08:34→12:16)
[2022-06-29] MEDS: LIDOCAINE 5% PATCH TD SCH (08:34)
--- NOTE | 2022-06-29 09:23 | NUR ---
SAM Discharge Note: Pt will be discharged to [facility] located at [address] [place] [address] ([phone]) via Ambulance transportation at 1PM. SAM spoke with admin coordinator, Dayanna ([phone]) at the facility who states they are ready to accept the patient today. Pt is aware and agreeable with discharge plan. Pts son, Nicola ([phone]) is aware and agreeable with the discharge plan. Pt is alert and oriented x2, is unable to plan for self-care at this time. However, pt is willing to accept care at SNF. Pt denies any suicidal or homicidal ideation. Pt will follow-up at the facility with Psychiatrist, Dr. Elliott ([phone]) and [facility], Dr. [place]. Pt presents with calm mood and congruent affect. PHARMACY: [facility] ([phone]) [address] [facility] [address].
--- NOTE | 2022-06-29 12:56 | NUR ---
Discharged to [facility] via Ambulance transportation at 1PM. Pt is aware and agreeable with discharge plan. Pts son, Nicola is aware and agreeable with the discharge plan. Pt is alert and oriented x2, is unable to plan for self-care at this time. However, pt is willing to accept care at SNF. Pt denies any suicidal or homicidal ideation. all personal belonging returned to patient.report called in to SNF spoke with Juliano JONES.Pt will follow-up at the facility with Psychiatrist, Dr. Elliott ([phone]) and Lead Supply Worker, Dr. [place].
== END 2022-06-29 13:30 | DRG 881 ==
LOC: ER 18:02 → GPS 23:30
PROVIDERS: ADMIT Psychiatry & Neurology Psychiatry; ATTEND Nurse Practitioner Acute Care
DX: F32.9 Major depressive disorder, single episode, unspecified (principal); E87.6 Hypokalemia; E78.5 Hyperlipidemia, unspecified; F20.9 Schizophrenia, unspecified; F41.9 Anxiety disorder, unspecified; G40.909 Epilepsy, unspecified, not intractable, without status epilepticus; Z87.891 Personal history of nicotine dependence; Z88.0 Allergy status to penicillin; Z95.0 Presence of cardiac pacemaker; F39 Unspecified mood [affective] disorder; F29 Unspecified psychosis not due to a substance or known physiological condition; R41.9 Unspecified symptoms and signs involving cognitive functions and awareness; I10 Essential (primary) hypertension; Z79.82 Long term (current) use of aspirin; Z20.822 Contact with and (suspected) exposure to COVID-19; Z59.00 Homelessness unspecified
CPT/HCPCS: 36415; 70450; 73521; 80164; 84443; 85025; 87086; 93005; A4663; G0480; J2060; J2358; J7040

== ENCOUNTER 2023-02-22 15:16 | Inpatient (IN) | payer MEDICARE, OTHER ==
[~2023-02-22] VITALS: Ht 157.5 cm; Wt 68.5 kg
[~2023-02-22 15:16] MED LIST: ASPI81TA31 PO; HYDR-894 PO; LAMO200T10 PO; LEVE500T9 PO; LIDO30AD10 TP; METH-806 PO; MULT-213 PO; ONDA4TAB5 PO; ROSU20TA2 PO; TOPI25TA49 PO; TRAM50TA2 PO
--- NOTE | 2023-02-22 15:29 | NUR ---
ER MD REVIEWED PT 'S CHART AND MEDICAL CLEARANCE WAS DONE.
--- NOTE | 2023-02-22 15:49 | NUR ---
JOHNNY VILLA LVN IN U
[2023-02-22] MEDS ORDERED: SERT100T PO (15:58)
[2023-02-22] MEDS ORDERED: HYDR-4209 PO (15:58)
[2023-02-22] MEDS ORDERED: GABA600T12 PO (15:58)
[2023-02-22] MEDS ORDERED: APIX2.5T PO (15:58)
[2023-02-22] MEDS ORDERED: LINA72CA PO (15:58)
[2023-02-22] MEDS ORDERED: NALT50TA PO (15:58)
[2023-02-22] MEDS ORDERED: LORA0.5T48 PO (15:58)
[2023-02-22] MEDS ORDERED: FOLI1TAB94 PO (15:58)
[2023-02-22] MEDS ORDERED: FERR325T28 PO (15:58)
[2023-02-22] MEDS ORDERED: CHLO25CA22 PO (15:58)
[2023-02-22] MEDS ORDERED: CLON0.5T4 PO (15:58)
[2023-02-22] MEDS ORDERED: ESCI10TA PO (15:58)
[2023-02-22] MEDS ORDERED: MAGNESIUM HYDROXIDE 30 ML LIQUID UDC PO PRN (16:30)
[2023-02-22] MEDS ORDERED: BLOOD SUGAR DIAGNOSTIC 1 EACH STRIP VI ONE (16:30)
--- NOTE | 2023-02-22 17:00 | NUR ---
GPS ADMISSION NOTES: Admitted a female 72 y/o patient, A/O x 3, ambulatory , to MHU, [facility] ER nurse via W/C. Patient resides at home with her son Patient was placed on 5150 for DTS,patient stated she want to overdose on pills because she is feeling depress. Patient will be under the care of Dr. Oconnell and Access Manager . Upon face to face evaluation, she appears of stated age, with no S/S of distress or discomfort. Patient stated she is depress and fell like dying but no plan at this time. contract safety with the sql report writer, stated "I be good". Active listening and re-assurance provided to patients feelings. Her judgement and insight limited. Patient oriented to the unit and verbalized understanding. She was assisted to her room, skin assessment done, skin is to be intact, patient ambulate with steady gait and notice a limp to left leg, per patient stated she had ankle surgery November or December, small scar notice. All belonging inventoried, contraband collected and placed in safe keeping. Close observation in placed, all safety measures implemented at all times, Patient rights book provided, Involuntary patient advisement given to patient. Will continue to monitor.
[2023-02-22 18:22] VITALS: BP 128/91
[2023-02-22 20:03] VITALS: BP 128/60
[2023-02-22] MEDS: APIXABAN 2.5 MG TABLET PO SCH (20:30)
[2023-02-22] MEDS: levETIRAcetam 500 MG TABLET PO SCH (20:50)
[2023-02-22] MEDS: ATORVASTATIN 40 MG TABLET PO SCH (20:50)
[2023-02-22] MEDS: LORAZEPAM 1 MG TABLET PO PRN (20:50)
--- NOTE | 2023-02-22 22:53 | NUR ---
Patients medication Eliquis scheduled for 2100 was not available. This play writer requested for the medication by sending the order to nursing office.The material handling warehouse supervisor was unable to obtain any for tonight. The patient is depressed but denies active SI , and made a verbal contract for safety with this play writer ,for the shift. Safety Stratiges are in place and on going.
[2023-02-23 08:05] VITALS: BP 111/67
[2023-02-23] MEDS: levETIRAcetam 500 MG TABLET PO SCH ×2 (08:32→16:10)
[2023-02-23] MEDS: MULTIVITAMINS,THERAPEUTIC TABLET PO SCH (08:33)
[2023-02-23] MEDS: ASPIRIN 81 MG TAB.CHEW PO SCH (08:33)
[2023-02-23] MEDS: FERROUS SULFATE 325 MG TABEC PO SCH (08:33)
[2023-02-23] MEDS: FOLIC ACID 1 MG TABLET PO SCH (08:33)
[2023-02-23] MEDS: APIXABAN 2.5 MG TABLET PO SCH ×2 (08:43→16:11)
[2023-02-23] MEDS: LORAZEPAM 1 MG TABLET PO PRN ×2 (09:15→21:33)
[2023-02-23] MEDS: ESCITALOPRAM OXALATE 10 MG TABLET PO SCH (11:35)
[2023-02-23] MEDS: LAMOTRIGINE 200 MG TABLET PO SCH ×2 (11:35→16:09)
[2023-02-23] MEDS: GABAPENTIN 300 MG CAPSULE PO SCH ×2 (12:20→16:10)
--- NOTE | 2023-02-23 13:34 | NUR ---
GPS: Nursing Notes: Destructive Behavior To Self: Patient is awake and responding to her name, depressed mood and anxious affect, low energy level, denies SI, stated "I am depressed, but I don't want to hurt myself.." No interactions with peers, compliant with her medications, unable to formulate a viable plan for self care, isolative and withdrawn in her room, unkempt appearance, continue to monitor for safety, continue with treatment plan.
[2023-02-23 16:20] VITALS: BP 94/52
[2023-02-23 20:00] VITALS: BP 101/57
[2023-02-23] MEDS: OLANZAPINE 2.5 MG TABLET PO SCH (20:39)
[2023-02-23] MEDS: ACETAMINOPHEN 325 MG TABLET PO PRN (20:39)
[2023-02-23] MEDS: ATORVASTATIN 40 MG TABLET PO SCH (20:40)
--- NOTE | 2023-02-24 03:49 | NUR ---
Received patient at the start of the shift ,asking for a shower. This proposal lead writer and the patient were able to engage in a meaningful conversation for a significant amount of time . The patient stated " My apartment is full of crack heads and meth users. It makes me so depressed and then I drink ". A plan for coping stratiges and different positive activities that the patient could participate in the community were discussed. The patient made a verbal contract for safety and denied SI at this time. Safety Stratiges are in place and ongoing.
[2023-02-24 07:39] VITALS: BP 94/52
[2023-02-24 08:19] LABS: HEMATOCRIT 42.9 % (31.2-41.9); MEAN CORPUSCULAR HEMOGLOBIN 31.4 uug (24.7-32.8); MEAN CORPUSCULAR VOLUME 98.4 fL (75.5-95.3); PLATELET COUNT (AUTO) 219 K/uL (179-408)
[2023-02-24] MEDS: levETIRAcetam 500 MG TABLET PO SCH ×2 (08:26→16:42)
[2023-02-24] MEDS: ESCITALOPRAM OXALATE 10 MG TABLET PO SCH (08:26)
[2023-02-24] MEDS: FOLIC ACID 1 MG TABLET PO SCH (08:26)
[2023-02-24] MEDS: LAMOTRIGINE 200 MG TABLET PO SCH ×2 (08:26→16:42)
[2023-02-24] MEDS: GABAPENTIN 300 MG CAPSULE PO SCH ×3 (08:26→16:41)
[2023-02-24] MEDS: ASPIRIN 81 MG TAB.CHEW PO SCH (08:26)
[2023-02-24] MEDS: FERROUS SULFATE 325 MG TABEC PO SCH (08:27)
[2023-02-24] MEDS: MULTIVITAMINS,THERAPEUTIC TABLET PO SCH (08:27)
[2023-02-24] MEDS: APIXABAN 2.5 MG TABLET PO SCH ×2 (08:27→16:48)
[2023-02-24 08:32] LABS: CARBON DIOXIDE 27 mmol/L (21-32); CHLORIDE 106 mmol/L (98-107); CREATININE 0.8 mg/dL (0.6-1.3); GLUCOSE 85 mg/dL (74-106); MAGNESIUM 2.1 mg/dL (1.8-2.4); POTASSIUM 4.5 mmol/L (3.5-5.1); UREA NITROGEN, BLOOD 16 mg/dL (7-18)
--- NOTE | 2023-02-24 15:14 | NUR ---
GPS: Nursing Notes: Destructive Behavior To Self: Patient is awake and responding to her name, needs a lot of prompting to participate in therapeutic groups, episodes of isolation and withdrawal in her room, minimal interaction with peers, depressed mood and anxious affect, denies SI, stated "I am feeling better...No, I do not want to hurt myself..", unable to formulate a viable plan for self care, unkempt appearance, compliant with her mediations, continue to monitor for safety, continue with treatment plan.
[2023-02-24 16:08] VITALS: BP 114/63
[2023-02-24 19:38] VITALS: BP 103/63
[2023-02-24] MEDS: LORAZEPAM 1 MG TABLET PO PRN (21:32)
[2023-02-24] MEDS: OLANZAPINE 2.5 MG TABLET PO SCH (21:33)
[2023-02-24] MEDS: ATORVASTATIN 40 MG TABLET PO SCH (21:33)
[2023-02-24] MEDS: MAG HYDROX/AL HYDROX/SIMETH 30 ML LIQUID UDC PO PRN (21:50)
--- NOTE | 2023-02-25 02:11 | NUR ---
Received patient at the start of the shift, anxious and needing reassurance. The patient was given a PRN that was requested and this handbook writer spent some time going over the positive plans that the patient had made a list of from the night before. The patient made a verbal contract for safety with this handbook writer and denied SI , plus made hopeful statements for the future. Safety Stratiges are in place. Continuing to monitor for anxiety and depressive moods.
[2023-02-25] MEDS: LORAZEPAM 1 MG TABLET PO PRN ×2 (06:26→20:39)
[2023-02-25 07:36] VITALS: BP 119/59
[2023-02-25] MEDS: ESCITALOPRAM OXALATE 10 MG TABLET PO SCH (08:27)
[2023-02-25] MEDS: MULTIVITAMINS,THERAPEUTIC TABLET PO SCH (08:27)
[2023-02-25] MEDS: FOLIC ACID 1 MG TABLET PO SCH (08:27)
[2023-02-25] MEDS: FERROUS SULFATE 325 MG TABEC PO SCH (08:27)
[2023-02-25] MEDS: ASPIRIN 81 MG TAB.CHEW PO SCH (08:27)
[2023-02-25] MEDS: GABAPENTIN 300 MG CAPSULE PO SCH ×3 (08:27→16:44)
[2023-02-25] MEDS: levETIRAcetam 500 MG TABLET PO SCH ×2 (08:27→16:44)
[2023-02-25] MEDS: LAMOTRIGINE 200 MG TABLET PO SCH ×2 (08:27→16:44)
[2023-02-25] MEDS: APIXABAN 2.5 MG TABLET PO SCH ×2 (08:34→16:44)
--- NOTE | 2023-02-25 11:51 | NUR ---
SAM Discharge Note: Pt currently resides at [address] [place], [place] [id number] ([phone]). It is unclear at this time if pt will return home with her caregiver, Maral. SAM will contact pt's son, Nicola [phone] and discuss pt's discharge plan. SAM will continue to work with pt, family and MD to ensure a safe and proper discharge plan.
--- NOTE | 2023-02-25 11:52 | NUR ---
SAM Initial Discharge Note: Pt currently resides at [address] [place], [place] [id number] ([phone]). It is unclear at this time if pt will return home with her caregiver, Maral. SAM will contact pt's son, Nicola [phone] and discuss pt's discharge plan. SAM will continue to work with pt, family and MD to ensure a safe and proper discharge plan.
--- NOTE | 2023-02-25 13:54 | NUR ---
GPS: Nursing Notes: Destructive Behavior To Self: Patient is awake and responding to her name, A/Ox3, compliant with her medications, needs prompting to participate in therapeutic groups, cooperative with nursing care, depressed mood and anxious affect, interactive with peers, denies SI, stated "I am feeling better... No, I do not want to hurt myself...", unable to formulate a viable plan for self care, low energy level, continue to monitor for safety, continue with treatment plan.
--- NOTE | 2023-02-25 15:20 | NUR ---
SAM Discharge Update: SAM contacted pt's son, Nicola [phone] and left a voicemail for a call back to discuss pt's discharge plan.
[2023-02-25 16:11] VITALS: BP 93/54
[2023-02-25] MEDS: ACETAMINOPHEN 325 MG TABLET PO PRN (18:36)
[2023-02-25 19:36] VITALS: BP 101/78
[2023-02-25] MEDS: ATORVASTATIN 40 MG TABLET PO SCH (20:19)
[2023-02-25] MEDS: OLANZAPINE 2.5 MG TABLET PO SCH (20:19)
--- NOTE | 2023-02-25 20:46 | NUR ---
GPS: Pt.is anxious at this time but denies wanting to hurt self. Re-assured prn. Med.compliant. Safety emphasized. Bedtime snacks given and patricia.well. Needs attended. Will continue to monitor.
[2023-02-26 07:44] VITALS: BP 105/51
[2023-02-26] MEDS: ASPIRIN 81 MG TAB.CHEW PO SCH (08:09)
[2023-02-26] MEDS: ESCITALOPRAM OXALATE 10 MG TABLET PO SCH (08:09)
[2023-02-26] MEDS: GABAPENTIN 300 MG CAPSULE PO SCH ×3 (08:09→16:52)
[2023-02-26] MEDS: MULTIVITAMINS,THERAPEUTIC TABLET PO SCH (08:09)
[2023-02-26] MEDS: LAMOTRIGINE 200 MG TABLET PO SCH ×2 (08:09→16:52)
[2023-02-26] MEDS: levETIRAcetam 500 MG TABLET PO SCH ×2 (08:09→16:52)
[2023-02-26] MEDS: FERROUS SULFATE 325 MG TABEC PO SCH (08:09)
[2023-02-26] MEDS: FOLIC ACID 1 MG TABLET PO SCH (08:09)
[2023-02-26] MEDS: APIXABAN 2.5 MG TABLET PO SCH ×2 (08:10→16:56)
[2023-02-26] MEDS ORDERED: LORAZEPAM 1 MG TABLET PO PRN (08:15)
[2023-02-26 16:09] VITALS: BP 117/68
--- NOTE | 2023-02-26 17:12 | NUR ---
GPS: Nursing Notes: Destructive Behavior To Self: Patient is awake and responding to her name, depressed mood and anxious affect, gets easily anxious when redirected, impaired judgment, isolative and withdrawn in her room, needs prompting to participate in therapeutic groups, low energy level, denies SI, stated "I am feeling better.. I am not going to hurt myself..I am better..", unable to formulate a viable plan for self care, unkempt appaerance, continue to monitor for safety, continue with treatment plan.
[2023-02-26] MEDS: ATORVASTATIN 40 MG TABLET PO SCH (20:44)
[2023-02-26] MEDS: OLANZAPINE 2.5 MG TABLET PO SCH (20:44)
[2023-02-26 21:42] VITALS: BP 101/68
--- NOTE | 2023-02-26 22:20 | NUR ---
Pt requested medication for having trouble sleeping, and medication for having a headache. Pt stated, "my head and eyes feel like they have a lot of pressure." "It's keeping me from falling asleep." Gave Ambien 5mg po prn hs for insomnia, and Tylenol 650mg po prn for headache. Safety measures in place. Will continue to monitor.
[2023-02-26] MEDS: ZOLPIDEM 5 MG TABLET PO PRN (22:29)
[2023-02-26] MEDS: ACETAMINOPHEN 325 MG TABLET PO PRN (22:30)
[2023-02-27 07:30] VITALS: BP 111/59
[2023-02-27] MEDS: FOLIC ACID 1 MG TABLET PO SCH (08:15)
[2023-02-27] MEDS: FERROUS SULFATE 325 MG TABEC PO SCH (08:15)
[2023-02-27] MEDS: LAMOTRIGINE 200 MG TABLET PO SCH ×2 (08:15→17:16)
[2023-02-27] MEDS: GABAPENTIN 300 MG CAPSULE PO SCH ×3 (08:16→17:15)
[2023-02-27] MEDS: levETIRAcetam 500 MG TABLET PO SCH ×2 (08:16→17:16)
[2023-02-27] MEDS: ESCITALOPRAM OXALATE 10 MG TABLET PO SCH (08:16)
[2023-02-27] MEDS: ASPIRIN 81 MG TAB.CHEW PO SCH (08:16)
[2023-02-27] MEDS: MULTIVITAMINS,THERAPEUTIC TABLET PO SCH (08:18)
[2023-02-27] MEDS: APIXABAN 2.5 MG TABLET PO SCH ×2 (08:20→17:18)
--- NOTE | 2023-02-27 11:23 | NUR ---
SAM Discharge Update: Pt currently resides at [address] [place], [place] [id number] ([phone]). It is unclear at this time if pt will return home with her caregiver, Maral. SAM has still not been able to speak to the pt's son, Nicola [phone] [facility].
[2023-02-27] MEDS: LORAZEPAM 0.5 MG TABLET PO PRN ×2 (12:17→21:10)
[2023-02-27 15:14] VITALS: BP 98/56
--- NOTE | 2023-02-27 17:49 | NUR ---
Received pt in room awake and responding to her name, Pt seems less but with anxious affect. Pt paces down the hallway, hyperverbal and needy. Pt needs constant attention from staff. Pt denies SI and made a verbal contract with this marine underwriter. Pt attends group activities and interacts more with staff and other patients. Pt is compliant with her medications, unable to formulate a viable plan for self care. Pt stated " I feel much better and less depressed" "the only problem I have right now is that I and having nightmares and I think is because of the Keppra I am taking " Reassurance and emotional support provided.Safety measures in place. Continue to monitor for safety, continue with treatment plan.
[2023-02-27 19:59] VITALS: BP 132/81
[2023-02-27] MEDS: ATORVASTATIN 40 MG TABLET PO SCH (21:10)
[2023-02-27] MEDS: OLANZAPINE 2.5 MG TABLET PO SCH (21:10)
[2023-02-27] MEDS: MAG HYDROX/AL HYDROX/SIMETH 30 ML LIQUID UDC PO PRN (21:10)
[2023-02-27] MEDS: ZOLPIDEM 5 MG TABLET PO PRN (23:06)
[2023-02-28 07:57] VITALS: BP 111/70
[2023-02-28] MEDS: ASPIRIN 81 MG TAB.CHEW PO SCH (08:17)
[2023-02-28] MEDS: MULTIVITAMINS,THERAPEUTIC TABLET PO SCH (08:17)
[2023-02-28] MEDS: FERROUS SULFATE 325 MG TABEC PO SCH (08:17)
[2023-02-28] MEDS: levETIRAcetam 500 MG TABLET PO SCH ×2 (08:18→17:25)
[2023-02-28] MEDS: ESCITALOPRAM OXALATE 10 MG TABLET PO SCH (08:18)
[2023-02-28] MEDS: GABAPENTIN 300 MG CAPSULE PO SCH ×3 (08:18→17:26)
[2023-02-28] MEDS: LAMOTRIGINE 200 MG TABLET PO SCH ×2 (08:18→17:25)
[2023-02-28] MEDS: FOLIC ACID 1 MG TABLET PO SCH (08:18)
[2023-02-28] MEDS: APIXABAN 2.5 MG TABLET PO SCH ×2 (08:20→17:40)
--- NOTE | 2023-02-28 09:42 | NUR ---
SAM Discharge Update: SAM spoke with pt's son, Nicola [phone] who stated that pt will return home with her caregiver, Maral located at [address] [place], [place] [id number]. Nicola stated if he is not able to provide transportation, he will help arrange transportation.
[2023-02-28] MEDS: HYDROXYZINE PAMOATE 25 MG CAPSULE PO PRN ×2 (11:46→19:59)
--- NOTE | 2023-02-28 13:15 | NUR ---
Patient had court hearing today, and school childcare attendant Madeline Lizama gave 14 Day hold probable cause for GD.
[2023-02-28 15:30] VITALS: BP 111/72
--- NOTE | 2023-02-28 19:21 | NUR ---
Pt is depressed, anxious, isolative and confused at times.Pt does not participates in group activities and stays in her room for the majority of the shift. Pt is compliant with medications and nursing care. Pt does not have a valuable plan for self care. Emotional support and reassurance provided. Safety measures in place. continue to monitor for safety continue with treatment plan.
[2023-02-28 19:52] VITALS: BP 100/57
[2023-02-28] MEDS: OLANZAPINE 2.5 MG TABLET PO SCH (19:58)
[2023-02-28] MEDS: ATORVASTATIN 40 MG TABLET PO SCH (19:58)
[2023-02-28] MEDS: ACETAMINOPHEN 325 MG TABLET PO PRN (19:59)
[2023-02-28 23:02] LABS: *BILIRUBIN,URIN NEGATIVE (NEGATIVE); *BLOOD, URINE NEGATIVE (NEGATIVE); *CLARITY,URINE CLEAR (CLEAR); *COLOR,URINE YELLOW (YELLOW); *KETONES,URINE NEGATIVE (NEGATIVE); *UROBILINOGEN,URINE 0.2 E.U./dl (NORMAL); LEUKOCYTE ESTERASE ,URINE 1+ (NEGATIVE); NITRITE, URINE NEGATIVE (NEGATIVE); PH,URINE 7.5 (5.0-8.0); UGLUCOSE NEGATIVE (NEGATIVE)
[2023-03-01] MEDS: ZOLPIDEM 5 MG TABLET PO PRN (00:51)
[2023-03-01 00:59] LABS: BACTERIA,URINE FEW /HPF (NONE SEEN); SQUAMOUS EPITHELIAL CELL,UR FEW /HPF (NONE SEEN)
--- NOTE | 2023-03-01 02:36 | NUR ---
Patient c/o " Can't pee much". A specimen was sent to the lab to r/o a UTI. This patient has been needy this shift and was moved to another room because of her room mate has been bullying her and telling her not to comply with the medications or the staff. Safety Stratiges are in place. A verbal contract for safety was made between the patient and this underwriter. The patient continues to deny any current or active SI.
[2023-03-01 07:11] VITALS: BP 98/53
[2023-03-01] MEDS: ASPIRIN 81 MG TAB.CHEW PO SCH (09:17)
[2023-03-01] MEDS: FOLIC ACID 1 MG TABLET PO SCH (09:17)
[2023-03-01] MEDS: FERROUS SULFATE 325 MG TABEC PO SCH (09:17)
[2023-03-01] MEDS: ESCITALOPRAM OXALATE 10 MG TABLET PO SCH (09:18)
[2023-03-01] MEDS: LAMOTRIGINE 200 MG TABLET PO SCH ×2 (09:18→16:43)
[2023-03-01] MEDS: GABAPENTIN 300 MG CAPSULE PO SCH ×2 (09:19→12:50)
[2023-03-01] MEDS: MULTIVITAMINS,THERAPEUTIC TABLET PO SCH (09:19)
[2023-03-01] MEDS: levETIRAcetam 500 MG TABLET PO SCH ×2 (09:20→16:43)
[2023-03-01] MEDS: APIXABAN 2.5 MG TABLET PO SCH ×2 (10:17→16:48)
--- NOTE | 2023-03-01 11:34 | NUR ---
SW Discharge Update: [place] resides at [address] [place] [address] [address] [place] [id number] ([phone]) with her caregiver Maral and son, Nicola. Nicola stated that if he is unable to provide transportation himself, he will help assist with arranging transportation for the pt to return home upon discharge.
[2023-03-01] MEDS: HYDROXYZINE PAMOATE 25 MG CAPSULE PO PRN ×2 (12:57→21:12)
--- NOTE | 2023-03-01 14:12 | NUR ---
SAM Substance Use Assessment: SAM completed a substance use assessment with the pt. SW will provide resources for the pt upon discharge.
--- NOTE | 2023-03-01 14:16 | NUR ---
Nursing- Adequate fluid intake, denies any discomfort in urination.. Encouraged attending her group activity, noted had been in and out of the room, constantly asking for the phone to be used. vistaril 25 mg 1 cap po given for anxiety, claimed it does not work but will take it anyways
--- NOTE | 2023-03-01 14:30 | NUR ---
Nursing -N Russell INVESTIGATIONS CONSULTANT was informed results of urine , no order received .Adequate fluid intake , denies any bladder discomfort.
[2023-03-01] MEDS ORDERED: LORAZEPAM 1 MG TABLET PO ONE (15:05)
--- NOTE | 2023-03-01 15:15 | NUR ---
Nursing- Patient having panic attack, came rushiing to Nurses station claimed not feeling too well, she felt the room was moving around, patient reassured Dr Oconnell was called and informed, orders received. B/P 169/90 HR 78 02 sat. 97%. Ativan 1 mg 1 tab. po was given, patient taken to the Nurses station giving her company and reassurance. B/P rechecked 120/91 HR 82 02 sat 98% .Tylenol 650 mg po michelle for c/o H/A verbalized adequate relief . Safety reviewed , emphasized
[2023-03-01 15:17] VITALS: BP 96/51
[2023-03-01] MEDS: ACETAMINOPHEN 325 MG TABLET PO PRN (15:33)
--- NOTE | 2023-03-01 16:13 | NUR ---
Nursing- Hannah Pharmacist was called to double check on patient's allergy list , noted allergic to Gabapentin , and patient on it at this time, will notify Medical Doctor to clarify . Will continue to monitor patient .
[2023-03-01 20:21] VITALS: BP 126/73
[2023-03-01] MEDS: OLANZAPINE 2.5 MG TABLET PO SCH (20:36)
[2023-03-01] MEDS: MELATONIN 3 MG TABLET PO SCH (20:36)
[2023-03-01] MEDS: ATORVASTATIN 40 MG TABLET PO SCH (20:36)
--- NOTE | 2023-03-01 20:40 | NUR ---
Received patient the tv room, calm and cooperative with care, patient socialize with other patient, drink water, no complain of pain, cont to monitor.
[2023-03-02] MEDS: ZOLPIDEM 5 MG TABLET PO PRN ×2 (00:23→23:29)
--- NOTE | 2023-03-02 05:50 | NUR ---
Patient asleep but arousable, with episode of anxiety, asked for antianxiety meds, with effective results, continent of bowel and bladder, cont to monitor.
[2023-03-02 07:54] VITALS: BP 132/76
[2023-03-02] MEDS: LAMOTRIGINE 200 MG TABLET PO SCH ×2 (08:25→17:14)
[2023-03-02] MEDS: FERROUS SULFATE 325 MG TABEC PO SCH (08:25)
[2023-03-02] MEDS: MULTIVITAMINS,THERAPEUTIC TABLET PO SCH (08:25)
[2023-03-02] MEDS: FOLIC ACID 1 MG TABLET PO SCH (08:25)
[2023-03-02] MEDS: ASPIRIN 81 MG TAB.CHEW PO SCH (08:25)
[2023-03-02] MEDS: ESCITALOPRAM OXALATE 10 MG TABLET PO SCH (08:25)
[2023-03-02] MEDS: APIXABAN 2.5 MG TABLET PO SCH ×2 (08:29→17:28)
[2023-03-02] MEDS: levETIRAcetam 500 MG TABLET PO SCH ×2 (08:30→17:14)
[2023-03-02] MEDS: ACETAMINOPHEN 325 MG TABLET PO PRN ×2 (13:43→22:00)
[2023-03-02] MEDS: LORAZEPAM 0.5 MG TABLET PO PRN ×2 (13:45→22:00)
--- NOTE | 2023-03-02 15:06 | NUR ---
Nursing - Stayed in the activity room most of the time , noted intercating with her peers.Medicated with tylenol 650 mg po. for lower back pain, verbalized adequate relief. Patient was also medicated with ativan 0,5 mg po for her anxiety, verbalized feeling calmer, < anxiety.
[2023-03-02 16:08] VITALS: BP 113/63
--- NOTE | 2023-03-02 19:00 | NUR ---
Received patient up ambulating on hallways, socialize with other resident, patient calm and cooperative with meds, cont to monitor.
[2023-03-02 20:23] VITALS: BP 133/78
[2023-03-02] MEDS: OLANZAPINE 2.5 MG TABLET PO SCH (20:27)
[2023-03-02] MEDS: ATORVASTATIN 40 MG TABLET PO SCH (20:27)
[2023-03-02] MEDS: MELATONIN 3 MG TABLET PO SCH (20:27)
--- NOTE | 2023-03-02 22:09 | NUR ---
Patient requested Ativan meds and tylenol for pain, given meds as ordered. cont to monitor.
[2023-03-03] MEDS: ACETAMINOPHEN 325 MG TABLET PO PRN ×2 (06:19→15:42)
[2023-03-03 08:03] VITALS: BP 100/51
[2023-03-03] MEDS: FOLIC ACID 1 MG TABLET PO SCH (08:35)
[2023-03-03] MEDS: LAMOTRIGINE 200 MG TABLET PO SCH ×2 (08:35→17:24)
[2023-03-03] MEDS: levETIRAcetam 500 MG TABLET PO SCH ×2 (08:35→17:23)
[2023-03-03] MEDS: ESCITALOPRAM OXALATE 10 MG TABLET PO SCH (08:35)
[2023-03-03] MEDS: ASPIRIN 81 MG TAB.CHEW PO SCH (08:35)
[2023-03-03] MEDS: FERROUS SULFATE 325 MG TABEC PO SCH (08:35)
[2023-03-03] MEDS: MULTIVITAMINS,THERAPEUTIC TABLET PO SCH (08:36)
[2023-03-03] MEDS: APIXABAN 2.5 MG TABLET PO SCH ×2 (08:41→17:24)
[2023-03-03] MEDS: LORAZEPAM 0.5 MG TABLET PO PRN ×2 (08:57→18:20)
--- NOTE | 2023-03-03 14:54 | NUR ---
patient has less anxious today claimed slept well last night, compliant with all routine medications . encouraged continued verbalizations of her feelings .patient is ambulates in the unit denies any pain or discomfort ,denies any SI/HI will continue close monitoring.
[2023-03-03 17:17] VITALS: BP 130/71
[2023-03-03 19:56] VITALS: BP 106/71
--- NOTE | 2023-03-03 20:00 | NUR ---
Received patient up ambulate to the hallways, continent of bowel and bladder, patient cooperative with medications and care, talk to other patient at TV room, patient request Ativan from AM nurse due to period of anxiety. cont to monitor.
[2023-03-03] MEDS: MELATONIN 3 MG TABLET PO SCH (20:19)
[2023-03-03] MEDS: ATORVASTATIN 40 MG TABLET PO SCH (20:19)
[2023-03-03] MEDS: OLANZAPINE 2.5 MG TABLET PO SCH (20:19)
--- NOTE | 2023-03-04 | NUR ---
Patient request for sleeping meds, unable to sleep, ambulate to hallways, stated she has a little of anxiety, wants to walk in the hallways to help her anxiety, cont to monitor.
[2023-03-04] MEDS: ZOLPIDEM 5 MG TABLET PO PRN (00:31)
[2023-03-04] MEDS: LORAZEPAM 0.5 MG TABLET PO PRN (02:23)
--- NOTE | 2023-03-04 02:23 | NUR ---
Patient awake, ambulate to hallways, request for Ativan po for her anxiety, encourage to stayed in bed to help promote sleep, provide quiet environment, dim lights, cont to monitor.
--- NOTE | 2023-03-04 06:08 | NUR ---
Patient sleep intermittently, ambulates in hallways, worries about her roommates, redirect patient behavior. Reorient patient that our staff is responsible for the patient and no need to worries, encourage patient to go back to sleep, patient able to follow. cont to monitor.
[2023-03-04 07:43] VITALS: BP 125/77
[2023-03-04] MEDS: ASPIRIN 81 MG TAB.CHEW PO SCH (08:12)
[2023-03-04] MEDS: FOLIC ACID 1 MG TABLET PO SCH (08:12)
[2023-03-04] MEDS: LAMOTRIGINE 200 MG TABLET PO SCH ×2 (08:12→16:56)
[2023-03-04] MEDS: ESCITALOPRAM OXALATE 10 MG TABLET PO SCH (08:12)
[2023-03-04] MEDS: FERROUS SULFATE 325 MG TABEC PO SCH (08:12)
[2023-03-04] MEDS: levETIRAcetam 500 MG TABLET PO SCH ×2 (08:13→16:56)
[2023-03-04] MEDS: MULTIVITAMINS,THERAPEUTIC TABLET PO SCH (08:13)
[2023-03-04] MEDS: APIXABAN 2.5 MG TABLET PO SCH ×2 (08:18→16:57)
[2023-03-04] MEDS ORDERED: diphenhydrAMINE 25 MG CAP PO PRN (08:30)
--- NOTE | 2023-03-04 10:08 | NUR ---
SW Discharge Update: [place] at [address] [place] [address] [address] [place] [id number] with her caregiver Maral and son, Nicola [phone]. Nicola stated that if he is unable to provide transportation himself, he will help assist with arranging transportation for the pt to return home upon discharge.
--- NOTE | 2023-03-04 15:25 | NUR ---
Received patient has less anxious today compliant with all routine medications . encouraged continued verbalizations of her feelings .patient is ambulates in the unit denies any pain or discomfort ,denies any SI/HI will continue close monitoring.
[2023-03-04 16:10] VITALS: BP 101/77
[2023-03-04 19:55] VITALS: BP 122/70
[2023-03-04] MEDS: MELATONIN 3 MG TABLET PO SCH (20:21)
[2023-03-04] MEDS: ACETAMINOPHEN 325 MG TABLET PO PRN (20:21)
[2023-03-04] MEDS: ATORVASTATIN 40 MG TABLET PO SCH (20:21)
[2023-03-04] MEDS: OLANZAPINE 5 MG TABLET PO SCH (20:22)
--- NOTE | 2023-03-04 20:40 | NUR ---
Received patient up in the TV room talking to other patients, patient request Tylenol for back pain, patient calm and cooperative with care, cont to monitor.
--- NOTE | 2023-03-05 05:16 | NUR ---
Patient asleep but arousable, request for sleeping meds, given Benadryl meds as ordered with some help, patient has episode of anxiety, stayed in her room and help her talks to other patient, cont to monitor.
[2023-03-05] MEDS: ACETAMINOPHEN 325 MG TABLET PO PRN ×2 (06:20→12:55)
[2023-03-05] MEDS: HYDROXYZINE PAMOATE 25 MG CAPSULE PO PRN ×2 (06:20→22:51)
--- NOTE | 2023-03-05 06:41 | NUR ---
Patient has episode of anxiety attack, crying in the corner of the room, patient had a bad dreams cause her to anxiety, seat patient up and try to calm her down, complain of head aches, given tylenol and vistaril as ordered. endorse to next shift.
--- NOTE | 2023-03-05 07:21 | NUR ---
GPS Nursing notes: Patient is lying in bed asleep, with no S/S of discomforts noted, fall and safety precautions observed. Will continue to monitor.
[2023-03-05] MEDS: APIXABAN 2.5 MG TABLET PO SCH ×2 (08:26→16:45)
[2023-03-05] MEDS: LAMOTRIGINE 200 MG TABLET PO SCH ×2 (08:27→16:37)
[2023-03-05] MEDS: MULTIVITAMINS,THERAPEUTIC TABLET PO SCH (08:27)
[2023-03-05] MEDS: FERROUS SULFATE 325 MG TABEC PO SCH (08:27)
[2023-03-05] MEDS: ASPIRIN 81 MG TAB.CHEW PO SCH (08:27)
[2023-03-05] MEDS: levETIRAcetam 500 MG TABLET PO SCH ×2 (08:27→16:37)
[2023-03-05] MEDS: FOLIC ACID 1 MG TABLET PO SCH (08:27)
[2023-03-05 08:28] VITALS: BP 115/73
[2023-03-05] MEDS: ESCITALOPRAM OXALATE 10 MG TABLET PO SCH (08:28)
--- NOTE | 2023-03-05 10:12 | NUR ---
SAM Discharge Update: [place] [address] [place] [address] [address] [place] [phone] with her caregiver Maral and son, Nicola [phone]. SAM spoke with Janeth from pt's insurance at [facility] [phone] regarding transportation for 03/06/23. Janeth informed this SW for SW to call again tomorrow and arrange it as the policy is for same day transportation. Janeth stated transportation to pt's address is confirmed and to [facility] on discharge day to arrange the time. SAM informed Nicola who stated if there are any issues, he will help with arranging transportation.
--- NOTE | 2023-03-05 15:10 | NUR ---
GPS Nursing Notes: Per patient, has taken keflex and she did not have any allergies, doctor also spoke with patient, pharmacy aware. Will continue to monitor.
[2023-03-05] MEDS: CEphaleXIN 500 MG CAPSULE PO SCH ×2 (15:18→21:12)
[2023-03-05 16:09] VITALS: BP 135/81
--- NOTE | 2023-03-05 18:29 | NUR ---
GPS Nursing notes: Patient took Keflex po ATB as ordered, no S/S of adverse reaction noted, patient does not complains of any allergic symptoms. Will continue to monitor.
[2023-03-05] MEDS: ATORVASTATIN 40 MG TABLET PO SCH (20:29)
[2023-03-05] MEDS: MELATONIN 3 MG TABLET PO SCH (20:29)
[2023-03-05] MEDS: OLANZAPINE 5 MG TABLET PO SCH (20:29)
[2023-03-05 20:57] VITALS: BP 115/73
--- NOTE | 2023-03-06 05:00 | NUR ---
Patient in the day area when received watching tv. She is complaint with all care. Compliant with medications. she is cooperative and easy to be directed. Able to make her needs known. Prn Vistaril given as per her requests. Sleeping intermittently this shift, at some point woke up confused, orient her back to reality and led her back to room. Frequent monitoring in placed. All safety measures kept in placed.
[2023-03-06] MEDS: HYDROXYZINE PAMOATE 25 MG CAPSULE PO PRN (05:29)
[2023-03-06] MEDS: CEphaleXIN 500 MG CAPSULE PO SCH ×2 (05:29→14:43)
[2023-03-06 08:07] VITALS: BP 99/51
[2023-03-06] MEDS: FERROUS SULFATE 325 MG TABEC PO SCH (08:30)
[2023-03-06] MEDS: LAMOTRIGINE 200 MG TABLET PO SCH ×2 (08:30→16:41)
[2023-03-06] MEDS: FOLIC ACID 1 MG TABLET PO SCH (08:30)
[2023-03-06] MEDS: ESCITALOPRAM OXALATE 10 MG TABLET PO SCH (08:30)
[2023-03-06] MEDS: levETIRAcetam 500 MG TABLET PO SCH ×2 (08:31→16:41)
[2023-03-06] MEDS: MULTIVITAMINS,THERAPEUTIC TABLET PO SCH (08:31)
[2023-03-06] MEDS: ASPIRIN 81 MG TAB.CHEW PO SCH (08:31)
[2023-03-06] MEDS: APIXABAN 2.5 MG TABLET PO SCH (08:33)
--- NOTE | 2023-03-06 10:47 | NUR ---
SAM Discharge Note: [place] will be discharged [place] at [address] [place] [address] [address] [place] [address] under the returning care of her inspector aligning, Maral [phone] and pts son, Nicloa ([phone]). Pt will be transferred via non-medical transportation arranged by Brenda from [facility] medical insurance [phone] between 2 and 3PM. Reservation number for the transportation is #[id number]. SAM spoke with Nicola who states they are ready to accept the patient home today. Pt is aware and agreeable with discharge plan. Pt is alert and oriented x4, is unable to plan for self-care at this time. However, pt is willing to accept care at home by her son and inspector aligning, Maral. Pt denies any suicidal or homicidal ideation. Pt will follow-up at the facility with Psychiatrist, Dr. Medrano [phone] and Senior Marketing Manager, Dr. [place] [address] [place] [id number] ([phone]). Pt presents with calm mood and congruent affect. PHARMACY: [facility] [address] [place] [address] ([phone]).
--- NOTE | 2023-03-06 10:49 | NUR ---
Received pt in room marisel anxious, responding to her name . Pt is A/O X3. Pt is compliant with medications and compliant with care. Pt is able to voice her needs. Pt can perform her ADLs without assistance and walks without assistance. Pt denies SI and verbally contracted for safety. Reassurance and emotional support provided. Continue to monitor for safety continue with treatment plan.
--- NOTE | 2023-03-06 17:03 | NUR ---
Received order to discharge [place] home [place] at [address] [place] [address] [address] [place] [address] under the returning care of her aerial photograph interpreter, Maral [phone] and pts son, Nicola ([phone]). Pt will be transferred via non-medical transportation arranged by Brenda from pts medical insurance [phone] between 2 and 3PM. Reservation number for the transportation is #[id number]. SAM spoke with Nicola who states they are ready to accept the patient home today. Pt is aware and agreeable with discharge plan. Pt is alert and oriented x3, ambulatory without assistance . Pt is able to perform her ADLs with out assistance. Pt is compliant with medications and nursing care. Pt denies SI/HI, AH/VH, SOB and pain. No acute distress noted. Reassurance and emotional support provided. Al belonging and valuables were returned to pt. Instructed pt to call 911 or go to the nearest hospital if feelings of of wanting to hurt self or others arise. Pt left unit at 1700.
== END 2023-03-06 17:00 | disposition home or self-care (01) | DRG 885 ==
LOC: ER 15:16 → GPS 15:45
PROVIDERS: ADMIT Psychiatry & Neurology Psychiatry; ATTEND Nurse Practitioner Acute Care
DX: F31.5 Bipolar disorder, current episode depressed, severe, with psychotic features (principal); B95.1 Streptococcus, group B, as the cause of diseases classified elsewhere; R45.851 Suicidal ideations; F10.239 Alcohol dependence with withdrawal, unspecified; N39.0 Urinary tract infection, site not specified; F41.0 Panic disorder [episodic paroxysmal anxiety]; Z79.82 Long term (current) use of aspirin; Z79.899 Other long term (current) drug therapy; Z95.0 Presence of cardiac pacemaker; Z86.79 Personal history of other diseases of the circulatory system; Z90.49 Acquired absence of other specified parts of digestive tract; E78.5 Hyperlipidemia, unspecified; R13.10 Dysphagia, unspecified; R26.2 Difficulty in walking, not elsewhere classified; Z88.1 Allergy status to other antibiotic agents; Z88.0 Allergy status to penicillin; Z88.8 Allergy status to other drugs, medicaments and biological substances; G40.909 Epilepsy, unspecified, not intractable, without status epilepticus; I25.10 Atherosclerotic heart disease of native coronary artery without angina pectoris
CPT/HCPCS: 36415; 83735; 84100; 85025; 93005; 97161; A4663; Q0163